=== PATIENT | male | born 1980 | race Caucasian/White ===

== ENCOUNTER 2019-09-05 08:07 | Outpatient (CLI) | payer BC, SELFPAY ==
--- NOTE | ~2019-09-05 | XR_ITS ---
EXAMINATION: XR knee LT min 4V DATE: 09/05/2019 08:30 INDICATION: Left knee injury. TECHNIQUE: 4 views of left knee were obtained. COMPARISON: None. FINDINGS: Bone alignment is normal. No fracture. There is mild osteoarthritis of medial compartment c haracterized by tiny marginal osteophytes. No knee joint effusion. IMPRESSION: 1. Mild left knee osteoarthritis. Reviewed, dictated and finalized at location A.
--- NOTE | ~2019-09-05 | XR_ITS ---
EXAMINATION: XR tibia fibula LT 2V DATE: 09/05/2019 08:31 INDICATION: Left lower leg injury. TECHNIQUE: 2 views of left tibia and fibula were obtained. COMPARISON: None. FINDINGS: Bone alignment is normal. No fracture. Joint spaces are well maintained. IMPRESSION: 1. Normal left tibia and fibula. Reviewed, dictated and finalized at location A.
== END 2019-09-05 08:08 | disposition home or self-care (01) ==
LOC: ANHIMG 08:15
PROVIDERS: PCP Nurse Practitioner Adult Health; Visit Provider Nurse Practitioner Adult Health
DX: S89.90XA Unspecified injury of unspecified lower leg, initial encounter (principal); M17.12 Unilateral primary osteoarthritis, left knee
CPT/HCPCS: 73564; 73590

== ENCOUNTER 2020-07-24 16:29 | Outpatient (CLI) | payer OTHER, SELFPAY | END 2020-07-24 16:30 | disposition home or self-care (01) | LOC: ANHCOVIDVC 16:30 | PROVIDERS: PCP Urology | DX: Z23 Encounter for immunization (principal) | CPT/HCPCS: 0001A; 91300 ==

== ENCOUNTER → 2020-07-30 09:28 | Outpatient (CLI) | payer OTHER, SELFPAY ==
[2020-07-31 18:59] LABS: SARS-CoV-2 RNA PCR Positive
== END ==
PROVIDERS: PCP Urology; Visit Provider Nurse Practitioner Adult Health
DX: U07.1 COVID-19 (principal)
CPT/HCPCS: C9803; U0003; U0005

== ENCOUNTER 2020-08-14 16:24 | Outpatient (CLI) | payer OTHER, SELFPAY | END 2020-08-14 16:25 | disposition home or self-care (01) | LOC: ANHCOVIDVC 16:24 | PROVIDERS: PCP Urology | DX: Z23 Encounter for immunization (principal) | CPT/HCPCS: 0002A; 91300 ==

== ENCOUNTER 2021-07-31 07:07 | Outpatient (CLI) | payer BC, SELFPAY ==
[2021-07-31 08:39] LABS: Basophils Percent Auto 0.6 % (0.2-1.2); Eosinophils Absolute Auto 0.3 K/mm3 (0-0.3); Eosinophils Percent Auto 4.5 % (0-4.4); Hematocrit 43.9 % (42.0-52.0); Hemoglobin 16.4 g/dL (14.0-18.0); Immature Granulocyte Absolute 0.04 K/mm3 (0.00-0.031); Immature Granulocyte Percent A 0.6 % (0-0.5); Lymphocytes Absolute Auto 1.97 K/mm3 (0.9-3.2); Lymphocytes Percent Auto 30.5 % (18.3-44.2); Mean Corpuscular HGB Conc 37.4 g/dl (32-36); Mean Corpuscular Hemoglobin 32.3 pg (26-34); Mean Corpuscular Volume 86.4 fl (80-100); Mean Platelet Volume 11.7 fl (7.4-10.4); Monocytes Absolute Auto 0.6 K/mm3 (0.1-0.6); Monocytes Percent Auto 9.8 % (2.6-8.5); Neutrophils Absolute Auto 3.5 K/mm3 (1.3-6.7); Platelet Count Result 164 k/mm3 (150-375); Red Blood Count 5.08 M/mm3 (4.6-6.20); Red Cell Distribution Width 13.4 % (11.5-14.5); White Blood Count 6.5 K/mm3 (4.5-10.0)
[2021-07-31 10:37] LABS: Alanine Aminotransferase 31 U/L (4-50); Albumin Level 4.2 g/dL (3.5-5.1); Alkaline Phosphatase 56 U/L (38-126); Anion Gap 7 mmol/L (8-16); Aspartate Amino Transferase 38 U/L (17-59); Bilirubin,Total 0.7 mg/dL (0.2-1.3); Blood Urea Nitrogen 19 mg/dL (9-20); Calcium 8.3 mg/dL (8.4-10.2); Carbon Dioxide 24 mmol/L (22-30); Chloride 107 mmol/L (98-107); Cholesterol 142 mg/dL (0-200); Estimated Glomerular Filt Rate > 60; Glucose 93 mg/dL (65-110); Potassium 4.2 mmol/L (3.4-5.0); Sodium 138 mmol/L (137-145)
[2021-07-31 11:39] LABS: Folic Acid 10.1 ng/mL (2.76->20)
[2021-07-31 12:42] LABS: LDL Cholesterol Direct < 30 mg/dL; Triglycerides 1757 mg/dL (<150)
== END 2021-07-31 07:08 | disposition home or self-care (01) ==
PROVIDERS: PCP Nurse Practitioner Adult Health; Visit Provider Nurse Practitioner Adult Health
DX: Z13.9 Encounter for screening, unspecified (principal)
CPT/HCPCS: 36415; 80053; 80061; 82607; 82746; 84443; 85025

== ENCOUNTER 2022-08-08 02:02 | Day surgery (SDC) | payer BC, SELFPAY ==
[2022-07-29 13:25] VITALS: BMI 29.6
[2022-08-08 07:19] VITALS: BP 119/69; PULSE 63; RESP 20; TEMP 35.8; O2SAT 99
[2022-08-08] MEDS: LACTATED RINGERS 1,000 ML 150 ML IV CONT ×2 (07:27→08:33)
--- NOTE | 2022-08-08 08:14 | P.PNAN_ITS ---
Anes - Initial Pre Proc Eval Procedure: Operation Date: 08/08/22 08:30 Proposed Procedures p Colonoscopy - Willis Shukla MD Date/Time: 08/08/22 08:14 Surgeon: Willis Shukla MD Pre Op Diagnosis: family hx colon polyps Patient Data Age: 42 Gender: M Height: 1.85 m Weight: 108.4 kg Last Vital Signs Temp 96.4 F L 08/08/22 07:19 Pulse 63 08/08/22 07:19 Resp 20 08/08/22 07:19 BP 119/69 08/08/22 07:19 Pulse Ox 99 08/08/22 07:19 O2 Del Method Room Air 08/08/22 07:19 Allergies Allergy/AdvReac Type Severity Reaction Status Date / Time No Known Allergies Allergy Verified 08/08/22 07:08 Home Medications Medication Instructions Recorded Confirmed Type dextroamphetamine-amphetamine 20 1 mg PO BID 07/29/22 07/29/22 History mg tablet Patient hx anesthesia problems: none Family hx anesthesia problems: none Results Review: All pre-operative results and documents have been reviewed as part of the pre- operative evaluation. [facility] Social History Social History Smoking packs per day: 0.5 Smoking cigarettes per day: 10.0 Years smoked: 8 Smoking pack-years: 4.00 Smoking status: Former smoker Tobacco type: cigarettes Alcohol intake: current Drinks per week: 6 Substance use type: does not use Living arrangements: with family Spiritual care concerns: No Anes - Eval Final PreProcedure Day of Procedure 08/08/22 08:14 Patient weight: normal Heart: regular rate and rhythm Lungs: clear to auscultation Airway: Mallampati scale class II Neurological: alert and oriented Last oral intake: >/= 8 hours ASA classification: II Emergent: no Anesthetic plan: proceed Anesthesia type and monitoring: general GIVS and standard monitoring Results Review: All pre-operative results and documents have been reviewed as part of the pre- operative evaluation. Informed Consent: The patient's anesthetic plan and its attendant risks and benefits were discussed with the patient/family/POA. Questions were solicited and answers provided to the satisfaction of the patient/family/POA.
--- NOTE | 2022-08-08 08:18 | PM.HPGS ---
History of Present Illness History of Present Illness Consent: Risks, benefits, and alternatives have been discussed and questions answered. Patient agrees to proceed with procedure. Chief complaint: family hx colon polyps Narrative: Handy Molina is a 42 year old male here for first screening colonoscopy, family history of colon polyps at early age Review of Systems Constitutional: Constitutional: Denies headache(s) and Denies weakness Eyes: Eyes: Denies blurry vision ENT: Reports Normal hearing present, Denies headache(s) and Denies neck pain Cardiovascular: Cardiovascular: Denies chest pain and Denies dyspnea Respiratory: Respiratory: Denies dyspnea Gastrointestinal: Gastrointestinal: Reports no additional gastrointestinal complaints Genitourinary: Genitourinary: Denies dysuria Musculoskeletal: Musculoskeletal: Denies neck pain Integumentary/Breasts: Skin/Breast: Denies dry skin Neurologic: Reports Normal hearing present, Denies headache(s) and Denies weakness Psychiatric: Psychiatric: Denies anxiety Endocrine: Endocrine: Denies change in body appearance Hematologic/Lymphatic: Hematologic/Lymphatic: Denies easy bleeding Allergic/Immunologic: Allergic/Immunologic: Denies urticaria PMFSH Past Medical History Medical History (Updated 08/08/22 @ 08:19 by Willis Shukla MD) Colon cancer screening Social History Social History Smoking packs per day: 0.5 Smoking cigarettes per day: 10.0 Years smoked: 8 Smoking pack-years: 4.00 Smoking status: Former smoker Tobacco type: cigarettes Alcohol intake: current Drinks per week: 6 Substance use type: does not use Living arrangements: with family Spiritual care concerns: No Meds Home Medications and Allergies Home Medications Medication Instructions Recorded Confirmed Type dextroamphetamine-amphetamine 20 1 mg PO BID 07/29/22 07/29/22 History mg tablet Allergies Allergy/AdvReac Type Severity Reaction Status Date / Time No Known Allergies Allergy Verified 08/08/22 07:08 Vital Signs Vital Signs - 24 hr 08/08/22 07:19 Temperature 96.4 F L Pulse Rate 63 Respiratory Rate 20 Blood Pressure 119/69 Pulse Oximetry 99 Oxygen Delivery Room Air Exam Const: General: comfortable and no acute distress HENMT: Face/Nose/Sinus: Normal nares present Eyes: General: appearance normal, both eyes and all related structures Neck: Neck: no JVD Resp: Auscultation: clear to auscultation bilaterally Cardio: Rate: regular rate Rhythm: regular rhythm GI: Inspection: non-distended GI Palp: Yes Soft to palpation Skin: General skin exam: normal color Neuro: General: gait normal Speech: normal speech Extrem: General: normal to inspection Psych: Mental Status: mental status grossly normal Assessment and Plan Assessment and plan (1) Colon cancer screening: Code(s): Z12.11 - Encounter for screening for malignant neoplasm of colon Status: Acute Assessment and Plan: colonoscopy
[2022-08-08 08:37] VITALS: BP 96/58; PULSE 58; RESP 20; O2SAT 99
[2022-08-08 08:47] VITALS: BP 108/65; PULSE 54; RESP 20; O2SAT 99
[2022-08-08 08:57] VITALS: BP 125/77; PULSE 56; RESP 20; O2SAT 99
== END 2022-08-08 09:09 | disposition home or self-care (01) ==
PROVIDERS: PCP Emergency Medicine; Visit Provider Internal Medicine Gastroenterology
PROC: 0DJD8ZZ Inspection of Lower Intestinal Tract, Via Natural or Artificial Opening Endoscopic (ICD-10-PCS; CPT 45378; principal; 2022-08-08 08:30)
DX: Z12.11 Encounter for screening for malignant neoplasm of colon (principal); D12.0 Benign neoplasm of cecum; K63.5 Polyp of colon; K57.30 Diverticulosis of large intestine without perforation or abscess without bleeding; K64.8 Other hemorrhoids; Z83.71 Family history of colonic polyps; Z87.891 Personal history of nicotine dependence
CPT/HCPCS: 45385; 88305; J2704; J7120

== ENCOUNTER 2022-10-23 05:45 | Emergency (ER) | payer BC, SELFPAY ==
[2022-10-23 05:49] VITALS: BP 161/82; PULSE 86; RESP 16; TEMP 36.7; O2SAT 99
--- NOTE | 2022-10-23 06:05 | PC.NURSE ---
Pt states he was seen at urgent care on Monday where he was tested for COVID, flu, strep, and mono. Pt states all of his tests came back negative. Pt states he is started feeling better yesterday and this morning he woke up when uvula swelling but otherwise feels back to normal. +Voice changes. He is managing his own secretions. No difficulty breathing noted. Throat is red, tonsils are slightly swollen on inspection.
--- NOTE | 2022-10-23 06:13 | ED.GENADULT ---
HPI - General Adult General Chief complaint: Unspecified Stated complaint: uvula swelling Time Seen by Provider: 10/23/22 06:03 History of Present Illness HPI narrative: Patient a 42-year-old gentleman who presents the emergency department with chief complaint of uvula swelling. Patient reports that he is recently had a viral syndrome with slept a lot and has been having generalized body aches the patient reports this evening around 3 AM he woke and noticed that his uvula and mouth was really dry and then suddenly his uvula swelled patient reports he feels as though there is a finger stuck in the back of his mouth the patient does report that he is able to handle his own secretions and able to swallow but it feels uncomfortable. The patient denies explicit shortness of breath reports no trauma reports that he does not have history of sleep apnea. Related Data Home Medications Medication Instructions Recorded Confirmed dextroamphetamine-amphetamine 20 1 mg PO BID 07/29/22 07/29/22 mg tablet Allergies Allergy/AdvReac Type Severity Reaction Status Date / Time No Known Allergies Allergy Verified 08/08/22 07:08 Review of Systems Review of Systems: A 10 system review of systems was completed on the patient and is negative except for what is stated in the HPI. Nursing and ancillary documentation was reviewed. [facility] Past Medical History Medical History Colon cancer screening Social History Social History Smoking packs per day: 0.5 Smoking cigarettes per day: 10.0 Years smoked: 8 Smoking pack-years: 4.00 Smoking status: Former smoker Tobacco type: cigarettes Alcohol intake: current Drinks per week: 6 Substance use type: does not use Living arrangements: with family Spiritual care concerns: No Exam Narrative: GENERAL: Well-appearing, well-nourished, and in no acute distress. HEAD: Normocephalic, atraumatic. EYES: PERRLA and EOMI. ENT: Nares clear, no rhinorrhea or epistaxis. Mucous membranes moist. There is isolated edema of the uvula that is symmetric NECK: Supple. CHEST: Clear to auscultation. No respiratory distress. HEART: Regular rate and rhythm. No murmur heard. Normal peripheral pulses. ABDOMEN: Soft, nontender, nondistended, normal active bowel sounds. EXTREMITIES: Normal range of motion. No edema. SKIN: Warm, dry, no rash. NEURO: No focal deficits. Alert and oriented x3. PSYCH: Normal mood and affect. Course Vital Signs Vital signs: Vital Signs Temperature 36.7 C 10/23/22 05:49 Pulse Rate 86 10/23/22 05:49 Respiratory Rate 16 10/23/22 05:49 Blood Pressure 161/82 H 10/23/22 05:49 Pulse Oximetry 99 10/23/22 05:49 Oxygen Delivery Room Air 10/23/22 05:49 Temperature 36.7 C 10/23/22 05:49 Pulse Rate 86 10/23/22 05:49 Respiratory Rate 16 10/23/22 05:49 Blood Pressure 161/82 H 10/23/22 05:49 Pulse Oximetry 99 10/23/22 05:49 Oxygen Delivery Room Air 10/23/22 05:49 Medical Decision Making MDM Narrative Medical decision making narrative: Differential diagnosis includes quincke's angioedema, allergic reaction, uvula trauma The patient is currently protecting his airway able to handle his own secretions the patient will be given a dose of steroids in the emergency department as well as hydration the patient will be observed to make sure that the edema is not increasing Vital Signs Vital Signs: Vital Signs Temperature 36.7 C 10/23/22 05:49 Pulse Rate 86 10/23/22 05:49 Respiratory Rate 16 10/23/22 05:49 Blood Pressure 161/82 H 10/23/22 05:49 Pulse Oximetry 99 10/23/22 05:49 Oxygen Delivery Room Air 10/23/22 05:49 Temperature 36.7 C 10/23/22 05:49 Pulse Rate 86 10/23/22 05:49 Respiratory Rate 16 10/23/22 05:49 Blood Pressure 161/82 H 10/23/22 05:49 Pulse O
[2022-10-23] MEDS: DEXAMETHASONE SOD PHOS INJ 4 MG/ML VIAL 10 MG IV PUSH (06:22)
[2022-10-23] MEDS: SODIUM CHLORIDE 0.9% IV 1,000 ML 999 ML IV CONT (06:22)
--- NOTE | 2022-10-23 06:49 | PC.NURSE ---
No improvement after IV decadron. Dr. Vasques notified. Per Dr. Vasques It's gonna take a few minutes to work . No new orders at this time.
[2022-10-23 07:23] VITALS: PULSE 67; RESP 14; O2SAT 97
== END 2022-10-23 07:45 | disposition home or self-care (01) ==
PROVIDERS: Emergency Provider Emergency Medicine; PCP Emergency Medicine
DX: T78.3XXA Angioneurotic edema, initial encounter (principal); Z87.891 Personal history of nicotine dependence
CPT/HCPCS: 96361; 96374; 99284; J1100; J7030

== ENCOUNTER 2024-01-03 09:39 | Outpatient (CLI) | payer BC, SELFPAY ==
--- NOTE | 2024-01-03 09:44 | EST_ITS ---
Patient Info Name: Handy Molina Age: 43 years : 1980 Gender: Male Ht: 73 in Wt: 220 lbs BSA: 2.29 m2 HR: 61 bpm BP: 132 / 78 mmHg Heart Rhythm: Sinus Rhythm Exam Date: 01/03/2024 9:55 AM Exam Location: [facility] Patient Status: Outpatient Admit Date: 01/03/2024 Staff Ordering Physician: Bari Stratton DO Attending Provider: Bari Stratton DO Exercise Technologist: Concha Hinojosa CT Exercise Physician: Bari Stratton DO Exam Type: CA stress test treadmill Study Info Indications R07.89 - Other chest pain A treadmill exercise stress test was performed. Summary 1. 1. Negative González exercise stress test for ischemic ST changes by ECG criteria. 2. 2. Good functional capacity, achieving 12 METs of workload. 3. 3. Appropriate HR response to exercise. 4. 4. Appropriate HR recovery at 1 minute post exercise. 5. 5. No imaging with stress testing. 6. 6. Patient informed of the above results. Protocol: González Stress ECG Details Stage: REST Duration (min): 1 min : 9 sec Speed (mph): 0.0 Grade (%): 0 HR (bpm): 64 SBP (mmHg): 132 DBP (mmHg): 78 METS: --- Stage: REST Duration (min): 18 min : 33 sec Speed (mph): 0.0 Grade (%): 0 HR (bpm): 66 SBP (mmHg): 132 DBP (mmHg): 78 METS: --- Stage: STAGE 1 Duration (min): 1 min : 0 sec Speed (mph): 1.7 Grade (%): 10 HR (bpm): 86 SBP (mmHg): 132 DBP (mmHg): 78 METS: --- Stage: STAGE 1 Duration (min): 2 min : 0 sec Speed (mph): 1.7 Grade (%): 10 HR (bpm): 87 SBP (mmHg): 132 DBP (mmHg): 78 METS: --- Stage: STAGE 1 Duration (min): 3 min : 0 sec Speed (mph): 1.7 Grade (%): 10 HR (bpm): 89 SBP (mmHg): 166 DBP (mmHg): 87 METS: --- Stage: STAGE 2 Duration (min): 1 min : 0 sec Speed (mph): 2.5 Grade (%): 12 HR (bpm): 100 SBP (mmHg): 166 DBP (mmHg): 87 METS: --- Stage: STAGE 2 Duration (min): 2 min : 0 sec Speed (mph): 2.5 Grade (%): 12 HR (bpm): 108 SBP (mmHg): 174 DBP (mmHg): 82 METS: --- Stage: STAGE 2 Duration (min): 3 min : 0 sec Speed (mph): 2.5 Grade (%): 12 HR (bpm): 106 SBP (mmHg): 174 DBP (mmHg): 82 METS: --- Stage: STAGE 3 Duration (min): 1 min : 0 sec Speed (mph): 3.4 Grade (%): 14 HR (bpm): 127 SBP (mmHg): 173 DBP (mmHg): 81 METS: --- Stage: STAGE 3 Duration (min): 2 min : 0 sec Speed (mph): 3.4 Grade (%): 14 HR (bpm): 132 SBP (mmHg): 173 DBP (mmHg): 81 METS: --- Stage: STAGE 3 Duration (min): 3 min : 0 sec Speed (mph): 3.4 Grade (%): 14 HR (bpm): 134 SBP (mmHg): 204 DBP (mmHg): 86 METS: --- Stage: STAGE 4 Duration (min): 1 min : 0 sec Speed (mph): 4.2 Grade (%): 16 HR (bpm): 149 SBP (mmHg): 204 DBP (mmHg): 86 METS: --- Stage: STAGE 4 Duration (min): 1 min : 18 sec Speed (mph): 4.2 Grade (%): 16 HR (bpm): 154 SBP (mmHg): 204 DBP (mmHg): 86 METS: ---
== END 2024-01-03 09:40 | disposition home or self-care (01) ==
PROVIDERS: PCP Nurse Practitioner Adult Health; Visit Provider Internal Medicine Cardiovascular Disease
DX: R07.9 Chest pain, unspecified (principal)
CPT/HCPCS: 93017

== ENCOUNTER 2024-07-21 13:45 | Emergency (ER) | payer OTHER, SELFPAY ==
[2024-07-21 13:48] VITALS: BP 132/78; PULSE 78; RESP 16; TEMP 36.6; O2SAT 100
[2024-07-21 13:58] VITALS: O2SAT 100
[2024-07-21 14:00] VITALS: O2SAT 100
[2024-07-21 14:02] VITALS: BP 150/85; PULSE 58; RESP 20; O2SAT 99
[2024-07-21] MEDS: SODIUM CHLORIDE 0.9% IV 1,000 ML 999 ML IV CONT (14:29)
[2024-07-21 14:35] LABS: Basophils Percent Auto 0.6 % (0.2-1.2); Eosinophils Absolute Auto 0.2 K/mm3 (0-0.3); Ethanol < 10 mg/dL (<10); Hematocrit 41.3 % (42.0-52.0); Hemoglobin 14.3 g/dL (14.0-18.0); Immature Granulocyte Absolute 0.01 K/mm3 (0.00-0.031); Immature Granulocyte Percent A 0.2 % (0-0.5); Lymphocytes Absolute Auto 1.45 K/mm3 (0.9-3.2); Lymphocytes Percent Auto 21.8 % (18.3-44.2); Mean Corpuscular HGB Conc 34.6 g/dl (32-36); Mean Corpuscular Hemoglobin 28.9 pg (26-34); Mean Corpuscular Volume 83.4 fl (80-100); Mean Platelet Volume 11.2 fl (7.4-10.4); Monocytes Absolute Auto 0.5 K/mm3 (0.1-0.6); Monocytes Percent Auto 7.2 % (2.6-8.5); Neutrophils Absolute Auto 4.5 K/mm3 (1.3-6.7); Neutrophils Percent Auto 67.2 % (45.5-73.1); Platelet Count Result 156 k/mm3 (150-375); Red Blood Count 4.95 M/mm3 (4.6-6.20); Red Cell Distribution Width 13.3 % (11.5-14.5); White Blood Count 6.6 K/mm3 (4.5-10.0)
[2024-07-21 14:44] LABS: Alanine Aminotransferase 29 U/L (6-50); Alkaline Phosphatase 54 U/L (38-126); Anion Gap 9 mmol/L (4-12); Aspartate Amino Transferase 24 U/L (17-59); Bilirubin,Total 0.6 mg/dL (0.2-1.3); Blood Urea Nitrogen 15 mg/dL (9-20); Calcium 8.8 mg/dL (8.4-10.2); Carbon Dioxide 28 mmol/L (22-30); Chloride 105 mmol/L (98-107); Estimated CRCL calculation 124 ml/min; Estimated Glomerular Filt Rate > 60; Glucose 87 mg/dL (65-110); Potassium 3.8 mmol/L (3.4-5.0); Sodium 142 mmol/L (137-145)
--- NOTE | 2024-07-21 14:55 | ED.SYNCOPE ---
HPI - Syncope General Chief Complaint: Seizure Stated Complaint: seizure vs syncope Time Seen by Provider: 07/21/24 14:08 Source: patient and family Mode of arrival: ambulatory Limitations: no limitations History of Present Illness HPI narrative: This is a 44 year old male that presents to the ER for a syncopal episode today. Reportedly patient had just went to the bathroom. He started to feel tunnel vision like he was going to pass out. He tried to lower himself to the floor, but passed out and hit his head. His witnessed brief shaking/seizure like activity. He was a little confused after. Patient is now alert and back to baseline. No current symptoms. He does report he has had some diarrhea the last couple of days. Related Data Allergies Allergy/AdvReac Type Severity Reaction Status Date / Time No Known Allergies Allergy Verified 07/21/24 14:00 Review of Systems Review of Systems: All systems reviewed & are unremarkable except as noted in HPI and below PMFSH Past Medical History Medical History (Updated 07/21/24 @ 16:15 by Jamilah Aguilera PA-C) Anxiety PTSD (post-traumatic stress disorder) Colon cancer screening Social History Social History Smoking packs per day: 0.5 Smoking cigarettes per day: 10.0 Years smoked: 8 Smoking pack-years: 4.00 Smoking status: Former smoker Tobacco type: cigarettes Alcohol intake: current Drinks per week: 6 Substance use type: does not use Lack of Transportation: No Lack of Food: Never True Current Housing: I Have Housing Concerned About Future Housing: No Difficulty Paying Gas/Electric Bills: No Difficulty Paying for Meds: No Currently Unemployed: No Education: Bachelor's Degree Difficulty w/ Childcare or Family Care: No Living arrangements: with family Occupation/Education: occupation Additional occupation/education comments: [employer] Gender identity (if verbalized by the patient): Male Spiritual care concerns: No Agree to blood products: Yes Exam Narrative: GENERAL: Well-appearing, well-nourished, and in no acute distress. HEAD: Normocephalic, atraumatic. EYES: PERRLA and EOMI. ENT: Nares clear, no rhinorrhea or epistaxis. Mucous membranes moist. Oropharynx without tonsillar hypertrophy exudate or other lesions. Bilateral TMs pearly dahl non-bulging NECK: Supple. No adenopathy or masses. No midline spinal tenderness CHEST: Clear to auscultation. No respiratory distress. No wheezes rales or rhonchi HEART: Regular rate and rhythm. No murmur heard. Normal peripheral pulses. BACK: No midline spinal tenderness EXTREMITIES: Normal range of motion. No edema. Strength equal in bilateral upper and lower extremities SKIN: Warm, dry, no rash. NEURO: No focal deficits. Alert and oriented x3. CN II-XII grossly intact PSYCH: Normal mood and affect Course Course Emergency Course: Patient updated on his workup. Resting. Reports feeling well. Agrees with plan of care Vital Signs Vital signs: Vital Signs Temperature 97.8 F 07/21/24 13:48 Pulse Rate 78 07/21/24 13:48 Respiratory Rate 16 07/21/24 13:48 Blood Pressure 132/78 07/21/24 13:48 Pulse Oximetry 100 07/21/24 13:48 Oxygen Delivery Room Air 07/21/24 13:48 Temperature 97.8 F 07/21/24 13:48 Pulse Rate 63 07/21/24 15:32 Respiratory Rate 20 07/21/24 14:02 Blood Pressure 128/88 07/21/24 15:32 Pulse Oximetry 99 07/21/24 14:02 Oxygen Delivery Room Air 07/21/24 14:00 MDM - Syncope MDM Narrative Medical decision making narrative: Patient presents to the emergency department after a syncopal episode today. He is afebrile and nontoxic appearing. His vitals are stable. CBC metabolic panel without concerning findings. EKG without concerning changes in his baseline troponin is negative. Chest x-ray is normal. CT brain is normal. Drug screen positive for cannabinoids and amphetamines. Patient does take ADHD medication. Patient hydrated with IV fluids. Patient updated on his workup. Resting. Reports feeling well. Agrees with plan of care. I sent an order for a Holter monitor for further evaluation. He is to follow up with primary provider. He was given warnings to return to the ER Differential Diagnosis Differential diagnosis: Likely syncope due to orthostatic hypotension, vasovagal syncope, dehydration and other (Arrhythmia) Lab Data Attestation: I reviewed the patient's lab results. 07/21/24 14:17 07/21/24 14:17 Labs: Lab Results 07/21/24 07/21/24 07/21/24 Range/Units 14:17 15:04 15:26 WBC 6.6 (4.5-10.0) K/mm3 RBC 4.95 (4.6-6.20) M/mm3 Hgb 14.3 (14.0-18.0) g/dL Hct 41.3 L (42.0-52.0) % MCV 83.4 (80-100) fl MCH 28.9 (26-34) pg MCHC 34.6 (32-36) g/dl RDW 13.3 (11.5-14.5) % Plt Count 156 (150-375) k/mm3 MPV 11.2 H (7.4-10.4) fl Immature Gran % (Auto) 0.2 (0-0.5) % Neut % (Auto) 67.2 (45.5-73.1) % Lymph % (Auto) 21.8 (18.3-44.2) % [place] % (Auto) 7.2 (2.6-8.5) % Eos % (Auto) 3.0 (0-4.4) % Baso % (Auto) 0.6 (0.2-1.2) % Lymph # (Auto) 1.45 (0.9-3.2) K/mm3 [place] # (Auto) 0.5 (0.1-0.6) K/mm3 Eos # (Auto) 0.2 (0-0.3) K/mm3 Baso # (Auto) 0.0 (0.0-0.1) K/mm3 Abs Immat Gran (auto) 0.01 (0.00-0.031) K/mm3 Absolute Neuts (auto) 4.5 (1.3-6.7) K/mm3 Absolute Nucleated RBC 0.000 (0.0-0.012) K/mm3 Nucleated RBC % 0.0 (0.0-0.2) % Sodium 142 (137-145) mmol/L Potassium 3.8 (3.4-5.0) mmol/L Chloride 105 (98-107) mmol/L Carbon Dioxide 28 (22-30) mmol/L Anion Gap 9 (4-12) mmol/L BUN 15 (9-20) mg/dL Creatinine 0.77 (0.7-1.3) mg/dL Estim Creat Clear Calc 124 ml/min Estimated GFR > 60 (59 - ) Glucose 87 (65-110) mg/dL POC Capillary Glucose 93 (65-105) mg/dl Lactic Acid 1.0 (0.7-2.0) mmol/L Calcium 8.8 (8.4-10.2) mg/dL Total Bilirubin 0.6 (0.2-1.3) mg/dL AST 24 (17-59) U/L ALT 29 (6-50) U/L Alkaline Phosphatase 54 (38-126) U/L Total Creatine Kinase 68 (55-170) U/L Troponin I < 0.012 (0.000-0.034) ng/mL Total Protein 7.0 (6.3-8.2) g/dL Albumin 4.0 (3.5-5.1) g/dL Urine Color Yellow (Yellow) Urine Appearance Turbid H (Clear) Urine pH 7.5 (5.0-9.0) Ur Specific [place] 1.021 (1.001-1.035) Urine Protein Negative (Negative) mg/dL Urine Glucose (UA) Negative (Negative) mg/dL Urine Ketones Negative (Negative) mg/dL Ur Blood (Man) Negative (Negative) Urine Nitrate Negative (Negative) Urine Bilirubin Negative (Negative) Urine Urobilinogen 1.0 (<2.0) mg/dL Leukocyte Esterase Rfl Negative (Negative) EVIE/UL Urine RBC 0-2 (0-2) /hpf Urine WBC 0-5 (0-3) /hpf Ur Squamous Epith Cells None seen (Few) /hpf Urine Bacteria None seen /hpf Urine Casts 0-2 Urine Opiates Screen Negative (Negative) Urine Methadone Screen Negative (Negative) Ur Barbiturates Screen Negative (Negative) Ur Phencyclidine Scrn Negative (Negative) Ur Amphetamine Screen Positive A (Negative) U Benzodiazepines Scrn Negative (Negative) Urine Cocaine Screen Negative (Negative) U Cannabinoids Screen Positive A (Negative) Ethyl Alcohol < 10 (<10) mg/dL Influenza A (RT-PCR) Negative (Negative) Influenza B (RT-PCR) Negative (Negative) RSV (RT-PCR) Negative (Negative) SARS-CoV-2 RNA (RT-PCR) Negative (Negative) Imaging Data Radiologist's impression: ITS Impressions Head CT 07/21/24 14:47 IMPRESSION: No acute intracranial findings. Chest X-Ray 07/21/24 15:58 IMPRESSION: No acute cardiopulmonary pathology. ECG Data EKG #1: ECG completion date: 07/21/24 EKG Interpretation: normal rate, sinus rhythm, no ST changes and normal QT Critical Care Time Critical Care Time Critical Care Time: No Discharge Plan Discharge Clinical Impression: Syncope Qualifiers: Syncope type: unspecified Qualified Code(s): R55 - Syncope and collapse Patient Disposition: Home, Self-Care Condition: Stable Instructions: Syncope (ED) Additional Instructions: Return to the emergency department if you experience fever, chest pain, shortness of breath, abdominal pain with nausea and vomiting, weakness, numbness, or any other symptoms that are concerning to you. Rest. Remain well hydrated. I have sent an order electronically for you to have a Holter monitor placed. Call to schedule getting this placed Follow up with your primary care doctor Patient Language: Ecuadorean Prescriptions: No Action tamsulosin 0.4 mg capsule 0.4 mg PO DAILY Qty: 90 3RF dextroamphetamine-amphetamine [Adderall] 30 mg tablet 30 mg PO BID Qty: 60 0RF Rx Instructions: administer doses at least 4-6 hours apart diclofenac potassium 50 mg tablet 50 mg PO BID Qty: 60 3RF omeprazole 40 mg capsule,delayed release(DR/EC) 40 mg PO DAILY Qty: 30 3RF fluoxetine 40 mg capsule See Rx Instructions .ROUTE .COMPLEX Qty: 90 3RF Dose Instruction: TAKE 1 CAPSULE BY MOUTH EVERY DAY Rx Instructions: TAKE 1 CAPSULE BY MOUTH EVERY DAY alprazolam 0.5 mg tablet 0.5 mg PO DAILY PRN (Reason: anxiety) Qty: 30 1RF Other Ambulatory Orders: CA holter monitor 3-7 day (Routine) Timeframe: 1 Week Location: Determined by Patient Ordered By: Jamilah Aguilera Follow-up/Referrals: Nusrat Guevara APRN [Primary Care Provider] -
[2024-07-21 14:59] LABS: Creatine Kinase 68 U/L (55-170)
[2024-07-21 15:12] LABS: Influenza A QL RT-PCR Negative (Negative); Influenza B QL RT-PCR Negative (Negative); RSV RNA, RT-PCR Negative (Negative); SARS-CoV-2 RNA PCR Negative (Negative)
[2024-07-21 15:15] LABS: Add Urine Microscopic? YES; Appearance Urine Turbid (Clear); Bacteria Urine None Seen /hpf; Bilirubin Urine Negative (Negative); Blood Urine Negative (Negative); Color Urine Yellow (Yellow); Glucose Urine UA Negative (Negative); Ketones Urine Negative (Negative); Leukocyte Esterase Ur Negative LEU/UL (Negative); Nitrate Urine Negative (Negative); Non Pathogenic Casts 0-2; Protein Urine Negative (Negative); RBC Urine 0-2 /hpf (0-2); Specific Grav Ur 1.021 (1.001-1.035); Squamous Epithelial Cell Urine None Seen /hpf (Few); WBC Urine 0-5 /hpf (0-3); pH Urine 7.5 (5.0-9.0)
[2024-07-21 15:20] LABS: Troponin I < 0.012 ng/mL (0.000-0.034)
[2024-07-21 15:26] LABS: Amphetamine Screen Urine Positive (Negative); Barbiturate Screen Urine Negative (Negative); Benzodiazepines Screen Urine Negative (Negative); Cannabinoid Screen Urine Positive (Negative); Cocaine Screen Urine Negative (Negative); Methadone Screen Urine Negative (Negative); Opiate Screen Urine Negative (Negative); Phencyclidine Screen Urine Negative (Negative)
[2024-07-21 15:32] VITALS: BP 125/80; BP 125/88; BP 128/88; PULSE 57; PULSE 60; PULSE 63
[2024-07-21 15:33] LABS: Glucose Point of Care 93 mg/dl (65-105)
[2024-07-21 17:10] VITALS: BP 133/83; PULSE 67; RESP 18; O2SAT 99
== END 2024-07-21 17:12 | disposition home or self-care (01) ==
PROVIDERS: Emergency Provider Physician Assistant; PCP Nurse Practitioner Adult Health
DX: R55 Syncope and collapse (principal); Z20.822 Contact with and (suspected) exposure to COVID-19; F41.9 Anxiety disorder, unspecified; F43.10 Post-traumatic stress disorder, unspecified; Z87.891 Personal history of nicotine dependence; Z79.899 Other long term (current) drug therapy; R94.31 Abnormal electrocardiogram [ECG] [EKG]
CPT/HCPCS: 36415; 70450; 71046; 80053; 80307; 81001; 82077; 82550; 82948; 83605; 84484; 85025; 87637; 93005; 96360; 99284; J7030